=== PATIENT | male | born 1935 | race Caucasian/White ===

== ENCOUNTER 2018-10-23 14:08 | Inpatient (IN) ==
[2018-10-23 15:30] LABS: BASO# 0.03 X1000 (0.0-0.2); BASO% 0.6 % (0.0-0.8); EOS# 0.11 X1000 (0.0-0.7); EOS% 2.2 % (0.0-10.0); HEMATOCRIT 27.9 % (42.0-52.0); HEMOGLOBIN 8.6 g/dL (14.0-18.0); LYMPH# 1.11 X1000 (1.2-3.4); MCH 28.1 PG (27-31); MCHC 30.8 g/dL (33-37); MCV 91.2 FL (81-99); MONO# 0.69 X1000 (0.11-0.59); MONO% 13.7 % (1.7-9.3); MPV 9.4 FL (7.4-10.4); NEUT% 61.5 % (42.2-75.2); PLT 188 X1000 (130-400); RBC 3.06 XMIL (4.7-6.1); RDW 14.8 % (11.5-14.5); WBC 5.04 X1000 (4.8-10.8)
[2018-10-23 15:49] LABS: INR 2.99; PROTIME 33.2 Seconds (11.0-16.0); PTT 48.6 Seconds (22.3-41.8)
[2018-10-23 16:16] LABS: AGAP 12; ALB/GLOB RATIO 0.8; ALBUMIN 3.6 g/dL (3.5-5.0); ALKALINE PHOSPHATASE 73 U/L (32-122); BUN 19 mg/dL (8-22); CALCIUM 8.3 mg/dL (8.8-10.2); CHLORIDE 97 mmol/L (98-107); COSMO 279; CREATININE 0.8 mg/dL (0.7-1.2); ESTIMATED GFR > 60; GLUCOSE 191 mg/dL (70-104); GOT 19 U/L (10-34); GPT 8 U/L (10-44); SODIUM 136 mmol/L (136-145); TCO2 27 mmol/L (25-35); TOTAL BILIRUBIN 0.36 mg/dL (0.20-1.00); TOTAL PROTEIN 8.1 g/dL (6.3-8.3)
[2018-10-23] MEDS: NS 1,000 ML IV SCH (18:41)
--- NOTE | 2018-10-23 19:15 | HISTORY AND PHYSICAL ---
CHIEF COMPLAINT: Bright red rectal bleeding. PRESENT ILLNESS: This is the first recent [facility] admission for this 83-year-old white man, patient of Dr. Maya, who noticed some bright red rectal bleeding today and presented to the emergency room. Hemoccult was positive. Hematocrit was 28. He is admitted for further evaluation and treatment. He is currently taking Coumadin because of aortic and peripheral artery disease. He has had no vomiting, and no hematemesis. There has been no bruising, nose bleed, or hematuria. There is history of GI bleeding in the past. He had colonoscopy 1 year ago and had some colon bleeding which was cauterized by Dr. Justice, tooth cutter pinion. PAST MEDICAL AND SURGICAL HISTORY: Surgeries include tonsillectomy as a child, bilateral cataract surgeries, attempted aortic aneurysm surgery by Dr. Michael. Bleeding caused him to abort surgery, and he was sent to [place] for evaluation to Dr. Hollins, vascular surgeon. Repeat abdominal ultrasound revealed aneurysm to be 4.5 cm[address] Mr. Bradley was told if the aneurysm increased to 5.[address] Hollins would do surgery. He is to return to [place] soon. PRESENT MEDICATIONS: Atorvastatin 80 mg at bedtime, Proscar 5 mg at bedtime, Humulin N insulin 42 units every a.m. and 22 units every p.m., carvedilol 3.125 mg b.i.d., Lopid 600 mg b.i.d., Flomax 0.4 mg at bedtime, Lasix 20 mg every a.m., potassium chloride 10 mEq 1 daily, and warfarin 2 mg every night at bedtime except 4 mg on . ALLERGIES: None known. REVIEW OF SYSTEMS: No significant abdominal pain. He has some constipation and admits to several large firm BMs recently. There has been no recent weight change. SOCIAL HISTORY: . No history of smoking or alcohol usage. PHYSICAL EXAMINATION: VITAL SIGNS: Temperature 97.7 degrees, heart rate 70, respirations 17, blood pressure 137/65, O2 saturation on room air 100%. Weight 250, height 5 feet 9 inches. GENERAL: Patient is a well-developed, well-nourished, pleasant white man in no distress. HEENT: Pupils equal, round, and reactive to light. Tympanic membranes without inflammation. Pharynx benign. NECK: Supple with no mass or lymphadenopathy. HEART: Regular in rate and rhythm with no murmur, rub or gallop. LUNGS: Clear with no rales or rhonchi. ABDOMEN: Soft with no mass, tenderness, or organomegaly. There is no abdominal bruit. EXTREMITIES: No cyanosis, clubbing, or edema. RECTAL AND GENITALIA: Deferred. DIAGNOSTIC DATA: Stool was checked for blood in the emergency room and was heme positive. IMPRESSION: 1. Lower gastrointestinal bleed. 2. Anemia. 3. Peripheral artery disease. 4. History of abdominal aortic aneurysm. PLAN: Admit for further evaluation and treatment. Dr. Reed is consulted. Coumadin is held for now. INR in the emergency room was 2.9. cc: MD Gurmeet Zazueta MD
--- NOTE | 2018-10-23 19:32 | PROVIDER DOCUMENTATION ---
This chart was entered by Brooke Mari Scribe, acting as scribe for Shefali Pereira MD. HPI-Abdominal Pain/GI Problem - General Chief Complaint: GI Bleed Stated Complaint: SOB,WEAKNESS,DIZZY,BLOOD IN STOOL Time Seen by Provider: 10/23/18 14:31 Source: patient Allergies/Adverse Reactions: Patient Allergies Allergy/AdvReac Type Severity Reaction Status Date / Time No Known Allergies Allergy Verified 10/23/18 15:06 Home Medications: Home Medication List Medication Instructions Recorded Confirmed Last Taken Type ATORVAstatin [Lipitor] 80 mg PO QHS 04/28/12 10/23/18 10/23/18 History Finasteride [Proscar] 5 mg PO QHS 04/28/12 10/23/18 10/22/18 History Furosemide [Lasix] 20 mg PO DAILY 04/28/12 10/23/18 10/23/18 History Gemfibrozil [Lopid] 600 mg PO BID 04/28/12 10/23/18 10/23/18 History Potassium Chloride 10 meq PO DAILY 04/28/12 10/23/18 10/23/18 History Tamsulosin [Flomax] 0.4 mg PO HS 04/28/12 10/23/18 10/22/18 History Hum Insulin NPH/Reg Insulin Hm 22 unit SQ QHS 05/25/17 10/23/18 10/22/18 History [Novolin 70-30 100 Unit/ml Vial] Hum Insulin NPH/Reg Insulin Hm 42 unit SQ QAM 05/25/17 10/23/18 10/23/18 History [Novolin 70-30 100 Unit/ml Vial] Carvedilol [Coreg] 3.125 mg PO BID tablet 12/10/17 10/23/18 10/23/18 Rx Warfarin [Coumadin] 4 mg PO QHS tablet 12/10/17 10/23/18 10/22/18 Rx Acetaminophen E.r. [Tylenol 2 cap PO BID 02/05/18 10/23/18 10/23/18 History Arthritis] Warfarin [Coumadin] 2 mg PO QHS 02/05/18 10/23/18 10/23/18 History - History of Present Illness-ABD Nature of Presenting Problems: 83 yom presents to the ed with c/o rectal bleeding intermittent for 2 weeks with bright red blood smeared on feces. pt had hx of GI bleed and was followed by dr corley last year. pt has had constipation recently with the rectal bleeding. pt is on a blood thinner daily. report Hx of GI tumor treated in 2002. Modifying Factors: worse with: defecating Associated Symptoms: reports: constipation, other (rectal bleeding). denies: back/neck pain, cough, diaphoresis, diarrhea, dizziness, fever/chills, headaches, nausea, shortness of breath, vomiting, weakness Last BM: this morning Dark Stools Present?: reports: bright red blood Rectal Bleeding: reports: bright red blood on paper, blood streaks on stool # of Diarrhea Episodes: 0 # of Vomiting Episodes: 0 Emesis Description: reports: none Bruising or Bleeding Gums?: No Similar Symptoms Previously?: Yes (was seen by dr corley last year for same) Recently seen or treated by another doctor?: No Review of Systems - Adult - REVIEW OF SYSTEMS - ADULT Constitutional: denies: see HPI, fever, fatique Eyes: reports: no symptoms reported Ears, Nose, Mouth & Throat: reports: no symptoms reported Cardiovascular: denies: chest pain, palpitations Respiratory: denies: shortness of breath, wheezing Gastrointestinal: reports: constipation, rectal bleeding. denies: abdominal pain, diarrhea, nausea, vomiting Genitourinary: reports: no symptoms reported Musculoskeletal: denies: back pain, neck pain Integumentary: reports: no symptoms reported Neurological: reports: no symptoms reported Past History - Adult - PAST MEDICAL HISTORY-ADULT Review of Records: reports: Old Records Reviewed, Nursing Assessment Review, Medications Reviewed, Social history reviewed & non-contributory. Major Childhood Illnesses: reports: denies history Cardiovascular: reports: cardiac disease, blood clots, CAD, HTN, hyperlipidemia, murmur, [place], pacemaker Respiratory: reports: sleep apnea Gastrointestinal: reports: denies history Genitourinary: reports: kidney stones (hx), prostate cancer Musculoskeletal: reports: denies history Hand Dominance: Right Handed Neurological: reports: denies history Psychiatric: reports: denies history Endocrine/Immune: reports: Diabetes Diabetes Type: Type 2 Other Conditions: reports: other cancer (prostate), cataract/glaucoma - PRIOR SURGERIES/PROCEDURES Surgical/Procedure History: reports: cardiac stent, pacemaker, other (bilateral cataract sx/left shoulder drained/GI bleed in past) - IMMUNIZATION STATUS Childhood Immunizations: See Nurse Assessment Flu Vaccine: See Nurse Assessment - FAMILY HISTORY Family History: reviewed, not pertinent - SOCIAL HISTORY Smoking: quit greater than 1 year Substance Use: none/never Alcohol Use Frequency: never Living Situation: family Physical Exam-General - PHYSICAL EXAM-ADULT Initial Vital Signs Reviewed: Yes - CONSTITUTIONAL General Appearance: appears well, alert, mild distress, obese - EYES Eyes: PERRL/EOMI, pink conjunctivae - HEAD, EARS, NOSE, MOUTH & THROAT HENMT: moist mucous membranes, normal ENT inspection - NECK Neck: non-tender, supple, normal inspection - RESPIRATORY Respiratory: chest non-tender, lungs clear, normal breath sounds, no pleuratic chest pain, no respiratory distress, no accessory muscle use - CARDIOVASCULAR Cardiovascular: normal peripheral pulses, systolic murmur, irregularly irregular - GASTROINTESTINAL (ABDOMEN) Abdominal Exam: normal bowel sounds, non tender, soft, other (mid abdomen scar well healed) - GENITOURINARY Male Genitalia: deferred Rectal Exam: normal rectal tone, blood streaked stool Hemoccult Exam: heme positive stool - LYMPHATIC Lymphatic: no adenopathy - MUSCULOSKELETAL Back Exam: normal inspection, no CVA tenderness, no vertebral tenderness Extremity: normal range of motion, non-tender, no pedal edema, no calf tenderness, normal capillary refill - SKIN Integumentary: normal color, normal turgor, warm/dry - NEUROLOGIC Neurologic: grossly normal, no motor/sensory deficits - PSYCHIATRIC Psych/Mental Status: normal mood/affect, normal thought content, normal thought process, oriented x 3 Progress - PLAN OF CARE/RESULTS Progress/Plan/Lab Results: Vital Signs - 8 hr 10/23/18 14:21 Temperature 98 F Pulse Rate 88 Respiratory Rate 20 Blood Pressure 129/78 O2 Sat by Pulse Oximetry 99 Orders Category Date Time Status CBC WITH ELECTRONIC DIFF [HEME] Stat Lab 10/23/18 14:53 Ordered COMPREHENSIVE METABOLIC PANEL [CHEM] Stat Lab 10/23/18 14:53 Ordered OCCULT BLOOD DIAGNOSTIC [STOOL] Stat Lab 10/23/18 14:53 Ordered PROTIME WITH INR [COAG] Stat Lab 10/23/18 14:53 Ordered PTT [COAG] Stat Lab 10/23/18 14:53 Ordered BRBPR with multiple risk factor (warfarin, Hx of GI tumor and bleed) and low Hg need further management inpatient. Result Diagrams: 10/23/18 14:51 10/23/18 14:51 - EKG 1 Time of EKG reading by physician:: 15:06 EKG Read and Signed by:: Shefali Pereira (possible anterolateral infarct, ag e undetermined) EKG Interpretation (*Must complete 3 of following elements*): Abnormal Rate: 74 Rhythm: wide qrs w/ occ pvc [place]: normal QRS: RBB, PVC's MD Interval: normal Comments: inferior infarct, age undetermiend - CONSULTS/PCP/HOSPITALIST Notification #1 *Consult/PCP/Hospitalist*: Dr. Tuttle Time Discussed: 17:09 Consult Disposition: Admit (Hx, PE and pt care discussed, admitting for Dr. Poe.) Departure - Departure Date of Disposition Decision: 10/23/18 Time of Disposition Decision: 17:11 DIAGNOSIS: Bright red blood per rectum Disposition: ADMITTED INPATIENT 09 Certified Medical Emergency: Emergent Condition: Stable - Critical Care Note This patient required my direct & personal management of CC.: No Attestation - Physician/ AZIZA Attestation Patient care was provided by Advanced Practice Provider:: No The physician spent face to face time with patient:: Yes Advanced Practice Provider documentation review:: Supervising physician onsite and consulted in the evaluation and care of this patient. The physician did have a face to face encounter with the patient. This chart was documented by the indicated scribe, (Brooke Mari, Camilo) a nd accurately reflects the services I performed and decisions made by me, Shefali Murguia MD, as attested by the provider's signature.
[2018-10-23 20:50] LABS: HEMATOCRIT 25.5 % (42.0-52.0); HEMOGLOBIN 7.6 g/dL (14.0-18.0)
[2018-10-23] MEDS: COREG PO SCH (21:29)
[2018-10-23] MEDS: FLOMAX PO SCH (21:29)
[2018-10-23] MEDS: LOPID PO SCH (21:29)
[2018-10-23] MEDS: LIPITOR PO SCH (21:29)
[2018-10-23] MEDS: TYLENOL ARTHRITIS PO SCH (21:32)
[2018-10-23] MEDS: PROSCAR PO SCH (21:47)
[2018-10-23] MEDS ORDERED: INSULIN PEN NEEDLES ONE (22:00)
[2018-10-23] MEDS: HUMULIN 70/30 SUBQ SCH (22:20)
[2018-10-24] MEDS: NS 1,000 ML IV SCH ×4 (06:24→21:13)
[2018-10-24 08:02] LABS: BASO# 0.02 X1000 (0.0-0.2); BASO% 0.5 % (0.0-0.8); EOS# 0.12 X1000 (0.0-0.7); EOS% 2.9 % (0.0-10.0); HEMATOCRIT 24.2 % (42.0-52.0); HEMOGLOBIN 7.2 g/dL (14.0-18.0); LYMPH# 1.02 X1000 (1.2-3.4); LYMPH% 24.5 % (20.5-51.1); MCH 27.4 PG (27-31); MCHC 29.8 g/dL (33-37); MONO# 0.76 X1000 (0.11-0.59); MONO% 18.3 % (1.7-9.3); MPV 9.4 FL (7.4-10.4); NEUT# 2.24 X1000 (1.4-6.5); NEUT% 53.8 % (42.2-75.2); PLT 159 X1000 (130-400); RBC 2.63 XMIL (4.7-6.1); RDW 14.7 % (11.5-14.5); WBC 4.16 X1000 (4.8-10.8)
--- NOTE | 2018-10-24 09:02 | PROGRESS NOTE ---
DATE: 10/24/2018 VITAL SIGNS: Stable with temperature 97.9 degrees, heart rate 73, respirations 20, blood pressure 115/62, O2 saturation 100% on room air. LABORATORY: Hemoglobin 7.2, hematocrit 24.2, white blood count 4200 with 54% neutrophils. SUBJECTIVE: The patient had no additional bleeding overnight. He has no abdominal pain. Discussion was made with Dr. Reed. He will be transfused 2 units of packed red blood cells. Lab will be repeated tomorrow morning. cc: MD Gurmeet Zazueta MD
[2018-10-24] MEDS: LOPID PO SCH ×2 (10:04→21:12)
[2018-10-24] MEDS: COREG PO SCH ×2 (10:04→21:12)
[2018-10-24] MEDS: TYLENOL ARTHRITIS PO SCH ×2 (10:04→21:12)
[2018-10-24] MEDS: HUMULIN 70/30 SUBQ SCH ×2 (10:05→21:13)
--- NOTE | 2018-10-24 14:26 | GASTROENTEROLOGY CONSULTATION ---
DATE: 10/24/2018 CONSULT REQUESTED BY: Dr. Carl Tuttle. REASON FOR CONSULT: GI bleed. HISTORY: This is a 83-year-old white male patient of Dr. Justice. Dr. Justice had seen him in the hospital exactly about a year ago for the similar problem. He was brought in the emergency room after he has had some bright red blood per rectum along with shortness of breath and dizziness. The patient has history of chronic atrial fibrillation and peripheral vascular disease and has been on Coumadin since . He is followed up by [facility] for his [facility]R. He tells me that for the past 2 weeks he has been noticing bright red blood per rectum off and on and he tells me it is a small quantity but has had almost with every bowel movements. He has been constipated and has to strain a lot and has been passing large hard stool and has felt as if they gets tear down in the rectum. However he does not have any swelling in the area. Although he has been bleeding for a couple weeks he sought medical attention after he started having shortness of breath and dizzy spells. He denies any melena. Has had no indigestion, heartburn, reflux symptoms. Denies any dysphagia, odynophagia. His appetite has been good has been eating well. He has not lost any weight. He has not had any headache. Denies any chest pain, has not any cough sputum, hemoptysis. Denies any dysuria, polyuria or hematuria. He had a colonoscopy Dr. Justice last year and had some AVMs cauterized. He did not have any polyps, tumors or cancers. PAST MEDICAL HISTORY: Significant for diabetes hypertension, chronic atrial fibrillation, peripheral vascular disease, history of lower GI bleed secondary to AVM cauterized, history of aortic aneurysm. MEDICATION: Prior to hospitalization he has been on Coumadin, Flomax, insulin, Lopid, Lasix, Proscar, Coreg, Lipitor, Tylenol Arthritis. ALLERGIES: No drug allergies. SOCIAL HISTORY: He is , lives with his . He is almost bedridden, has not been able to walk much, he gets off his chair to the bedside commode and back. Does not smoke, does not drink, does not use illicit drugs. FAMILY HISTORY: Noncontributory. REVIEW OF SYSTEMS: As per HPI as above. EXAMINATION: Very pleasant white male overweight, he is lying in bed. He is conscious, alert, appears to be in no distress.Vitals: Temperature is 97.9 degrees, pulse 73 per minute, breathing 20, blood pressure 115/62. HEENT: Head is atraumatic, normocephalic. Conjunctivae is normal. Sclerae anicteric. Nares are patent, no discharge. Mouth is moist. Throat is normal. Neck: Supple. No lymphadenopathy, thyromegaly. Chest: Has got a pacemaker on the left upper chest otherwise chest is clear to auscultate. Heart: S2 audible. Has got systolic murmur. Abdomen: Is obese, soft, it is nontender. I could not appreciate masses, megaly, no ascites noted. Bowel sounds are audible. No pedal edema, cyanosis, clubbing was noted. BUILD ENGINEER: Grossly intact. No sensory or motor deficit. LABORATORIES: Reviewed which showed WBC is 4.16, hemoglobin was 7.2, hematocrit 24.2, MCV 92, platelets were 159,000. PT 33.2, INR 2.99, PTT 48.6, sodium 136, potassium 4.0, chloride 97, BUN is 19, creatinine 0.8, glucose was 191. Transaminases, bilirubin and alkaline phosphate normal. IMPRESSION: This 83-year-old gentleman who has been on Coumadin for chronic atrial fibrillation, peripheral vascular disease and has also history of aortic aneurysm. He has presented with bright red blood per rectum off and on for the past 2 weeks. His INR was 2.99 on admission yesterday, his hemoglobin has come down to 7.2 today. Patient appears to have had significant loss of blood in the past 2 weeks most likely from the coagulopathy secondary to Coumadin. At this point we need to hold his Coumadin to get his INR back between 1.5 and 2. In the meantime continue GI soft diet and check hemoglobin and hematocrit, transfuse to get his hemoglobin, hematocrit a little better than what is now to get him comfortable because he presented with symptomatic anemia. From gastroenterology perspective he has had a colonoscopy a year ago. The arterial venous malformations were cauterized. At this point I do not think we need to do anything especially because his INR is significantly high almost prohibitively high. Will continue to follow while he is in the hospital and depending on progress further plans will be made. I have discussed the case with Dr. Tuttle also, explained the findings and plan to the patient. He understands. All his pertinent questions answered. Rest of the medical treatment as per medical team. cc: MD Gurmeet Sheffield MD MTDD
[2018-10-24] MEDS: LIPITOR PO SCH (21:12)
[2018-10-24] MEDS: PROSCAR PO SCH (21:12)
[2018-10-24] MEDS: FLOMAX PO SCH (21:13)
[2018-10-24 22:22] LABS: URINE SOURCE CLEAN CATCH
[2018-10-24 22:26] LABS: BILIRUBIN URINE NEGATIVE (NEGATIVE); BLOOD URINE SMALL (NEGATIVE); COLOR YELLOW; GLUCOSE URINE NEGATIVE (NEGATIVE); KETONE URINE NEGATIVE (NEGATIVE); LEUKOCYTES URINE LARGE (NEGATIVE); NITRITE URINE POSITIVE (NEGATIVE); PH URINE 6.5; PROTEIN URINE 30 mg/dL (NEGATIVE); SP GRAVITY URINE 1.021; TURBIDITY URINE HAZY (CLEAR); UR EPITHELIAL CELLS <10 /HPF (<10); URINE BACTERIA 4+ /HPF; URINE RBC <10 /HPF (<10); URINE WBC TNTC /HPF (<10); UROBILINOGEN URINE NORMAL (NORMAL)
[2018-10-25 07:45] LABS: BASO# 0.02 X1000 (0.0-0.2); BASO% 0.4 % (0.0-0.8); EOS# 0.17 X1000 (0.0-0.7); EOS% 3.3 % (0.0-10.0); HEMATOCRIT 28.4 % (42.0-52.0); HEMOGLOBIN 8.8 g/dL (14.0-18.0); IMM GRAN# 0.02 X1000 (0.0-0.04); IMM GRAN% 0.4 % (0.0-0.5); LYMPH# 0.95 X1000 (1.2-3.4); LYMPH% 18.7 % (20.5-51.1); MCH 27.9 PG (27-31); MCV 90.2 FL (81-99); MONO# 0.87 X1000 (0.11-0.59); MONO% 17.1 % (1.7-9.3); MPV 9.4 FL (7.4-10.4); NEUT# 3.06 X1000 (1.4-6.5); NEUT% 60.1 % (42.2-75.2); PLT 157 X1000 (130-400); RBC 3.15 XMIL (4.7-6.1); RDW 15.7 % (11.5-14.5); WBC 5.09 X1000 (4.8-10.8)
[2018-10-25] MEDS: LOPID PO SCH ×2 (08:51→20:51)
[2018-10-25] MEDS: TYLENOL ARTHRITIS PO SCH ×2 (08:52→20:51)
[2018-10-25] MEDS: HUMULIN 70/30 SUBQ SCH ×3 (08:53→20:51)
[2018-10-25] MEDS: COREG PO SCH ×2 (08:54→20:51)
--- NOTE | 2018-10-25 09:30 | PROGRESS NOTE ---
DATE: 10/25/2018 VITAL SIGNS: Stable with temperature 98.3 degrees, heart rate 70, respirations 16, blood pressure 122/65, O2 saturation on room air 97%. SUBJECTIVE: The patient had no significant rectal bleeding, but did have some dark blood and 1 stool yesterday. After transfusion, hematocrit this morning is 28.4. Hemoglobin 8.8, and white blood count 5100. Blood sugars have been around 200. Chest is clear. He has noticed swelling in his hands and difficulty removing his rings. PLAN: Restart p.o. Lasix and potassium. Also increase a.m. insulin back to 42 units. Hematocrit will be rechecked tomorrow. Decision about lower GI endoscopy will be made tomorrow by Gastroenterology . cc: MD Gurmeet Zazueta MD
[2018-10-25] MEDS: NS 1,000 ML IV SCH ×2 (11:34→23:57)
[2018-10-25] MEDS: LASIX PO SCH (11:34)
[2018-10-25] MEDS: KLOR-CON PO SCH (11:34)
[2018-10-25 12:30] LABS: INR 2.13; PROTIME 25.4 Seconds (11.0-16.0)
--- NOTE | 2018-10-25 12:45 | GASTROENTEROLOGY PROGRESS NOTE ---
DATE: 10/25/2018 SUBJECTIVE: Patient is awake, alert, in no acute distress. He reports having a maroon color stool yesterday, so far no bowel movement today. Hemoglobin and hematocrit today improved some after 2 units of packed red blood cells. Today hemoglobin 8.8 and hematocrit 28.4. OBJECTIVE: Vital Signs: Temperature 98.6 degrees, pulse 70, respirations 16, blood pressure 115/57. General: Patient is awake and alert, no acute distress. Abdomen: Soft, nontender. LABORATORY: Hematology: WBC 5.09, hemoglobin 8.8, hematocrit 28.4, this is after 2 units of packed red blood cells on 10/24/2018. ASSESSMENT AND PLAN: 1. Recent rectal bleeding. 2. Anticoagulation with Coumadin. Coumadin has been held. The patient had a colonoscopy a year ago by Dr. Justice that showed some AVMs in the colon that were cauterized. We will continue to follow during his hospital course. We will allow full liquids. Further plans to be made as needed. I have discussed this case with Dr. Reed. Dictated by CARIN Tapia for Ash Reed MD cc: CARIN Bowman MD Stephen W. Harbin, MD
[2018-10-25] MEDS: HUMALOG SUBQ SCH ×2 (17:53→20:51)
[2018-10-25] MEDS: PROSCAR PO SCH (20:51)
[2018-10-25] MEDS: FLOMAX PO SCH (20:51)
[2018-10-25] MEDS: LIPITOR PO SCH (20:51)
[2018-10-26] MEDS: LASIX PO SCH (05:48)
[2018-10-26] MEDS: KLOR-CON PO SCH (05:48)
[2018-10-26] MEDS: HUMALOG SUBQ SCH ×4 (06:26→20:05)
[2018-10-26] MEDS: TYLENOL ARTHRITIS PO SCH ×2 (08:31→20:06)
[2018-10-26] MEDS: LOPID PO SCH ×2 (08:31→20:05)
[2018-10-26] MEDS: COREG PO SCH ×2 (08:32→20:05)
[2018-10-26] MEDS: HUMULIN 70/30 SUBQ SCH ×2 (08:32→20:05)
[2018-10-26] MEDS ORDERED: HUMULIN 70/30 SUBQ SCH (09:00)
--- NOTE | 2018-10-26 09:07 | PROGRESS NOTE ---
DATE: 10/26/2018 SUBJECTIVE: Patient is stable. He is desiring to eat more solid diet. He had received 2 units PRBC's transfused. OBJECTIVE: Afebrile. Pulse 70, respirations 18, blood pressure 121/57. O2 saturation room air 100%.CV: RRR with 2/6 murmur. Lungs: Clear. Abdomen: Soft. Nontender. Nondistended. Extremities: No calf tenderness, cords or edema. Prominent arthritic changes diffusely. Neurologic: Cranial nerves 2-12 are intact. Nonfocal. Blood sugars in the high 100s to mid 200s. Hematocrit 28.1, down from 28.4 yesterday, but stable after 2 units PRBC's transfused. INR yesterday down to 2.13 off his Coumadin. ASSESSMENT: 1. Heme-positive stools with GI bleed. 2. Acute GI blood loss anemia. 3. History of colonic AVM previously cauterized by Dr. Justice 1 year ago. 4. 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 5. Paroxysmal atrial fibrillation on chronic Coumadin therapy per Cardiology and followed by the [facility] with patient now being off Coumadin due to the GI bleeding. 6. 4.5 cm abdominal aortic aneurysm. 7. Peripheral arterial disease. 8. Osteoarthritis. 9. Hyperlipidemia. 10. 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 11. Coronary artery disease. 12. Morbid obesity. 13. Fatty liver. 14. Diverticulosis. 15. Asymptomatic cholelithiasis. 16. Cardiomyopathy. 17. History of prostate cancer. 18. Hypertension. 19. Permanent pacemaker. 20. CORY on CPAP. PLAN: We will leave current dietary situation to Gastroenterology. He is off the Coumadin. He is on his scheduled insulin with blood sugars acceptable. He is on low-dose IV fluids. He is on low-dose Lasix and potassium, and his Lipitor, Lopid, and his Coreg. We will continue to follow him and transfuse if required. Follow his hemoglobin and hematocrit closely. cc: Gurmeet Poe MD
--- NOTE | 2018-10-26 09:55 | EKG Report ---
Test Performed on : 10/23/2018 3:08:41 PM Test Reason : sob Blood Pressure : / mmHG Vent. Rate : 075 BPM Atrial Rate : 063 BPM P-R Int : 000 ms QRS Dur : 186 ms QT Int : 472 ms P-R-T Axes : 000 239 055 degrees QTc Int : 527 ms Wide QRS rhythm. with occasional premature ventricular complexes. Right bundle branch block Possible Lateral infarct , age undetermined Inferior infarct , age undetermined Abnormal ECG When compared with ECG of 05-FEB-2018 11:31, Wide QRS rhythm. has replaced Electronic ventricular pacemaker Unconfirmed Result
[2018-10-26] MEDS: NS 1,000 ML IV SCH (12:58)
--- NOTE | 2018-10-26 16:30 | GASTROENTEROLOGY PROGRESS NOTE ---
DATE: 10/26/2018 SUBJECTIVE: The patient has tolerated a full liquid diet. He denies any visible blood. He states he had a bowel movement today and nurse states that was nonbloody. Hematocrit today 28.1. Patient has received 2 units of packed red blood cells since admission. OBJECTIVE: Vital Signs: Temperature 98.6 degrees, pulse 70, respirations 18, blood pressure 96/54. General: Patient is awake, alert, no acute distress. LABORATORY: Hematology: Hematocrit 28.1. ASSESSMENT AND PLAN: 1. Recent rectal bleeding. Seems to have resolved. 2. Anemia. Patient has received 2 units of packed red blood cells. Will continue to follow hemoglobin and hematocrit. 3. History of atrial fibrillation, on Coumadin therapy. Coumadin is currently on hold due to recent bleeding. Continue PPI. Continue to monitor hemoglobin and hematocrit and transfuse further packed red blood cells if needed. Coumadin is currently on hold. He has not had active bleeding in the last several days. Since he has no active bleeding we will most likely not proceed with endoscopy. I will discuss this case with Dr. Reed and we may advance the patient's diet depending on plan. Dictated by CARIN Tapia for Ash Reed MD cc: CARIN Bowman MD Stephen W. Harbin, MD
[2018-10-26] MEDS: PROSCAR PO SCH (20:05)
[2018-10-26] MEDS: FLOMAX PO SCH (20:05)
[2018-10-26] MEDS: LIPITOR PO SCH (20:06)
[2018-10-27] MEDS: NS 1,000 ML IV SCH ×2 (01:50→16:19)
[2018-10-27] MEDS: LASIX PO SCH (06:13)
[2018-10-27] MEDS: KLOR-CON PO SCH (06:13)
[2018-10-27] MEDS: HUMALOG SUBQ SCH ×4 (06:13→20:21)
[2018-10-27 08:16] LABS: BASO# 0.01 X1000 (0.0-0.2); BASO% 0.2 % (0.0-0.8); EOS# 0.14 X1000 (0.0-0.7); EOS% 2.2 % (0.0-10.0); HEMATOCRIT 27.4 % (42.0-52.0); HEMOGLOBIN 8.4 g/dL (14.0-18.0); IMM GRAN# 0.02 X1000 (0.0-0.04); IMM GRAN% 0.3 % (0.0-0.5); LYMPH# 1.04 X1000 (1.2-3.4); LYMPH% 16.4 % (20.5-51.1); MCH 27.5 PG (27-31); MCHC 30.7 g/dL (33-37); MCV 89.5 FL (81-99); MONO# 1.12 X1000 (0.11-0.59); MONO% 17.6 % (1.7-9.3); MPV 9.9 FL (7.4-10.4); NEUT# 4.02 X1000 (1.4-6.5); NEUT% 63.3 % (42.2-75.2); PLT 151 X1000 (130-400); RBC 3.06 XMIL (4.7-6.1); WBC 6.35 X1000 (4.8-10.8)
[2018-10-27 08:17] LABS: AGAP 11; BUN 10 mg/dL (8-22); CALCIUM 8.1 mg/dL (8.8-10.2); CHLORIDE 103 mmol/L (98-107); COSMO 273; CREATININE 0.6 mg/dL (0.7-1.2); ESTIMATED GFR > 60; GLUCOSE 129 mg/dL (70-104); SODIUM 136 mmol/L (136-145); TCO2 22 mmol/L (25-35)
[2018-10-27 08:18] LABS: INR 1.67
[2018-10-27] MEDS ORDERED: PRILOSEC PO ONE (08:36)
--- NOTE | 2018-10-27 09:01 | PROGRESS NOTE ---
DATE: 10/27/2018 SUBJECTIVE: Patient is stable. No bowel movement yet this morning. He remains on full liquids as per gastroenterology. OBJECTIVE: Afebrile, pulse 70, respirations 13, blood pressure 96/56, O2 saturation on room air 97%. CV: RRR, with murmur. Lungs: Clear. Abdomen: Soft, nontender, nondistended. Extremities: No major edema. Neurologic: Cranial nerves are intact. No focal deficits. Sodium 136, potassium 4.0, chloride 103, CO2 22, BUN 10, creatinine 0.6, blood sugar in the 98 to 247 range, calcium 8.1. White count 6.35, hemoglobin 8.4, platelets 151,000. ASSESSMENT: 1. Gastrointestinal bleed with heme-positive stools. 2. Acute gastrointestinal blood loss anemia. 3. History of colonic arteriovenous malformations, previously cauterized [address] Justice. 4. 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 5. Paroxysmal atrial fibrillation, on chronic Coumadin per cardiology, currently being held with his INR down to 1.67, now off the Coumadin. 6. A 4.5 cm abdominal aortic aneurysm, followed in [place] by a surgeon. 7. Peripheral arterial disease. 8. Osteoarthritis. 9. Hyperlipidemia. 10. History of pancreatic cystic lesion, thought to be fatty infiltration of the pancreas. 11. Coronary artery disease. 12. Morbid obesity. 13. Fatty liver. 14. Diverticulosis. 15. Asymptomatic cholelithiasis. 16. Cardiomyopathy. 17. History of prostate cancer. 18. Hypertension. 19. Permanent pacemaker. 20. Obstructive sleep apnea, on CPAP at night. PLAN: Continue to hold his Coumadin. Continue IVF and full liquids per gastroenterology. We will monitor his CBC and BMP closely. Monitor his blood pressure closely. Continue his home low dose of Lasix Coreg, Lipitor, Lopid, potassium. Monitor his blood sugars on his current regimen of insulin. If hemoglobin stabilizes, may be able to discharge in 24 to 48 hours. At this time, he is trending downward slightly. We will continue to observe with gastroenterology. Continue PPI ordered for peptic ulcer disease prevention. cc: Gurmeet Poe MD
[2018-10-27] MEDS: TYLENOL ARTHRITIS PO SCH ×2 (09:20→20:16)
[2018-10-27] MEDS: LOPID PO SCH ×2 (09:20→20:16)
[2018-10-27] MEDS: COREG PO SCH ×2 (09:20→20:16)
[2018-10-27] MEDS: HUMULIN 70/30 SUBQ SCH ×2 (09:22→20:22)
[2018-10-27] MEDS ORDERED: GOLYTELY PO ONE (14:00)
--- NOTE | 2018-10-27 14:37 | GASTROENTEROLOGY PROGRESS NOTE ---
DATE: 10/27/2018 SUBJECTIVE: Patient is awake and alert. No acute distress. There has been no evidence of active bleeding. His hemoglobin and hematocrit today are slightly lower. INR 1.67 today. OBJECTIVE: Vital Signs: Temperature 98.5 degrees, pulse 70, respirations 13, blood pressure 113/57. General: Patient is awake, alert, no acute distress. Abdomen: Soft, nontender. LABORATORY: Hematology: WBC 6.35, hemoglobin 8.4, hematocrit 27.4, MCV 89.5, platelet 151,000. Coagulation: Pro-time 21.0, INR 1.67. Chemistry: Sodium 136, potassium 4.0, chloride 103, CO2 of 22, BUN 10, creatinine 0.6, glucose 129. ASSESSMENT AND PLAN: 1. Hemoccult-positive stools with no evidence of active gastrointestinal bleeding. 2. Anemia, slightly worsened today. 3. History of colonic arteriovenous malformations with colonoscopy and esophagogastroduodenoscopy by Dr. Justice approximately a year ago. 4. Anticoagulation. He has been off of his Coumadin since admission. His INR is 1.67 today. We will continue to monitor for active bleeding. Monitor hemoglobin and hematocrit and transfuse packed red blood cells as needed. Due to patient's continued anemia, before he is started back on his Coumadin would recommend endoscopic evaluation. We will proceed with EGD and colonoscopy on Friday. I have discussed the procedure with the patient and he wished to proceed if necessary. Further plans will be made according to findings. I have discussed this case with Dr. Reed. Dictated by CARIN Tapia for Ash Reed MD cc: CARIN Bowman MD Stephen W. Harbin, MD
[2018-10-27] MEDS: FLOMAX PO SCH (20:16)
[2018-10-27] MEDS: PROSCAR PO SCH (20:17)
[2018-10-27] MEDS: LIPITOR PO SCH (20:17)
[2018-10-28] MEDS: NS 1,000 ML IV SCH ×3 (05:11→23:30)
[2018-10-28] MEDS: PRILOSEC PO SCH (06:07)
[2018-10-28] MEDS: HUMALOG SUBQ SCH ×4 (06:07→21:51)
[2018-10-28 07:16] LABS: HEMATOCRIT 27.5 % (42.0-52.0); HEMOGLOBIN 8.4 g/dL (14.0-18.0); MCH 28.3 PG (27-31); MCHC 30.5 g/dL (33-37); MCV 92.6 FL (81-99); MPV 9.4 FL (7.4-10.4); RBC 2.97 XMIL (4.7-6.1); RDW 15.2 % (11.5-14.5); WBC 3.48 X1000 (4.8-10.8)
[2018-10-28 07:31] LABS: AGAP 8; BUN 7 mg/dL (8-22); CHLORIDE 102 mmol/L (98-107); COSMO 270; CREATININE 0.6 mg/dL (0.7-1.2); ESTIMATED GFR > 60; GLUCOSE 96 mg/dL (70-104); POTASSIUM 3.7 mmol/L (3.5-5.1); SODIUM 136 mmol/L (136-145); TCO2 26 mmol/L (25-35)
[2018-10-28] MEDS ORDERED: DIPRIVAN 1% ONE (13:08)
[2018-10-28] MEDS ORDERED: XYLOCAINE-MPF 2% ONE (13:09)
--- NOTE | 2018-10-28 14:47 | ENDOSCOPY OPERATIVE NOTE ---
[facility] ENDOSCOPY OPERATIVE NOTE , PATIENT: Smith Bradley ADM DATE: 10/28/2018 MR #: [id number] : 1935 ACCT #: COLONOSCOPY PROCEDURE REPORT PROCEDURE DATE: 10/28/2018 SURGEON: Ash Reed MD STATUS: inpatient SCRAP PILER: Maribeth Biggs and Brigette Barros PREOPERATIVE DIAGNOSIS: The patient is a 83 yr old male here for a colonoscopy due to hematochezia a nd anemia, non-specific. PROCEDURE PERFORMED: Colonoscopy with control of bleeding Colonoscopy with snare polypectomy MEDICATIONS: Per Anesthesia PREP TYPE: GoLytely
[2018-10-28] MEDS: COREG PO SCH ×2 (14:52→21:59)
[2018-10-28] MEDS: LASIX PO SCH (14:53)
[2018-10-28] MEDS: TYLENOL ARTHRITIS PO SCH ×2 (14:54→21:59)
[2018-10-28] MEDS: LOPID PO SCH ×2 (14:54→21:59)
[2018-10-28] MEDS: KLOR-CON PO SCH (14:54)
[2018-10-28] MEDS: HUMULIN 70/30 SUBQ SCH ×2 (14:55→21:53)
--- NOTE | 2018-10-28 21:42 | PROGRESS NOTE ---
DATE: 10/28/2018 SUBJECTIVE: Patient has had EGD and colonoscopy done this morning, and the results showed 2 AVMs and some bleeding with that and those sites were cauterized per Dr. Reed. He also had a 9 mm sessile polyp in the hepatic flexure, which was removed via snare cautery. OBJECTIVE: Vital signs: Afebrile. Vital signs stable. Cardiovascular: RRR with murmur. Lungs: CTA. Extremities: No calf tenderness, cords or edema. Prominent arthritic changes diffusely. Neurological: Cranial nerves 2 to 12 intact. No focal deficits. LABORATORY DATA: White count 3.48, hemoglobin 8.4, platelets 137,000. Sodium 136, potassium 3.7, chloride 102, CO2 26, BUN 7, creatinine 0.6, blood sugar primarily in the 100s, calcium 8.0. ASSESSMENT: 1. Gastrointestinal bleed secondary to bleeding arteriovenous malformations in the colon now cauterized. 2. Sessile polyp left hepatic flexure 9 mm, status post snare cautery. 3. Gastrointestinal blood loss anemia, stable. 4. 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 5. Paroxysmal atrial fibrillation on chronic Coumadin therapy prior to this admission. 6. A 4.5 cm abdominal aortic aneurysm followed by [place] surgeon. 7. Peripheral arterial disease. 8. Osteoarthritis. 9. Hyperlipidemia. 10. History of pancreatic cystic lesion, thought to be fatty infiltration of the pancreas. 11. Coronary artery disease. 12. Morbid obesity. 13. Fatty liver. 14. Diverticulosis. 15. Asymptomatic cholelithiasis. 16. Cardiomyopathy. 17. History of prostate cancer. 18. Hypertension. 19. Permanent pacemaker. 20. Obstructive sleep apnea on CPAP at night. PLAN: He remains off his Coumadin. We will repeat CBC in the morning and we will continue his insulin and follow his blood sugars. He is on full liquids at this time. We will try to advance tomorrow and likely discharge late tomorrow if he continues to do well without signs of active bleeding. cc: Gurmeet Poe MD
[2018-10-28] MEDS: FLOMAX PO SCH (21:59)
[2018-10-28] MEDS: LIPITOR PO SCH (21:59)
[2018-10-28] MEDS: PROSCAR PO SCH (22:00)
[2018-10-29] MEDS ORDERED: INSULIN PEN NEEDLES ONE (06:05)
[2018-10-29] MEDS: PRILOSEC PO SCH (06:15)
[2018-10-29] MEDS: HUMALOG SUBQ SCH ×4 (06:52→20:29)
[2018-10-29 07:31] LABS: HEMATOCRIT 27.3 % (42.0-52.0); HEMOGLOBIN 8.3 g/dL (14.0-18.0); MCH 27.8 PG (27-31); MCHC 30.4 g/dL (33-37); MCV 91.3 FL (81-99); MPV 9.5 FL (7.4-10.4); RBC 2.99 XMIL (4.7-6.1); RDW 15.2 % (11.5-14.5); WBC 4.06 X1000 (4.8-10.8)
[2018-10-29] MEDS: LASIX PO SCH (08:31)
[2018-10-29] MEDS: LOPID PO SCH ×2 (08:31→20:44)
[2018-10-29] MEDS: COREG PO SCH ×2 (08:31→20:44)
[2018-10-29] MEDS: TYLENOL ARTHRITIS PO SCH ×2 (08:31→20:43)
[2018-10-29] MEDS: KLOR-CON PO SCH (08:31)
[2018-10-29] MEDS: HUMULIN 70/30 SUBQ SCH ×2 (08:32→20:44)
--- NOTE | 2018-10-29 10:52 | PROGRESS NOTE ---
DATE: 10/29/2018 SUBJECTIVE: The patient is stable, and tolerating full liquid diet. OBJECTIVE: Afebrile. Blood pressure marginally low, but stable.Cardiovascular: RRR. Lungs: Clear. Abdomen: Soft, nontender, and nondistended. Extremities: No calf tenderness, cords or edema. Pronounced arthritic changes diffusely. Neurologic: Cranial nerves are intact. Moves all extremities well. No focal deficits. LABORATORY: White count 4.06, hemoglobin stable at 8.3, and platelets 147,000. Blood sugars in the 90 to 189 range. ASSESSMENT: 1. GI bleed secondary to AVM's and 1 sessile polyp in the colon. 2. Acute GI blood loss anemia, stable status post 2 units PRBC's transfused. 3. 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 4. Paroxysmal atrial fibrillation, previously on chronic Coumadin therapy by Cardiology, [facility]. 5. 4.5 cm abdominal aortic aneurysm, followed by [place] surgeon 6. PAD. 7. OA 8. Hyperlipidemia. 9. Remote history of pancreatic cystic lesion, thought to be fatty infiltration of the pancreas. 10. CAD. 11. Morbid obesity. 12. Fatty liver. 13. Diverticulosis. 14. Asymptomatic cholelithiasis. 15. Cardiomyopathy. 16. History of prostate cancer. 17. Hypertension. 18. Permanent pacemaker. 19. CORY on CPAP. PLAN: We will continue to follow the patient on full liquids and understand Dr. Reed may advance his diet after 24 hours and may watch him another 24 after that on a regular diet, make sure he does not rebleed. If that's the case, we will check CBC in the morning and follow that. Continue to leave him off anticoagulation, and we will have plans to when we discharge patient to allow him to follow up with his wire weaver cloth, and decide on resumption of the Coumadin versus another agent in the long run. cc: MD WIL Zamora
[2018-10-29] MEDS: FLOMAX PO SCH (20:43)
[2018-10-29] MEDS: LIPITOR PO SCH (20:43)
[2018-10-29] MEDS: PROSCAR PO SCH (20:44)
--- NOTE | 2018-10-29 22:44 | GASTROENTEROLOGY PROGRESS NOTE ---
DATE: 10/29/2018 SUBJECTIVE: Patient denies complaints. He has not had any further rectal bleeding since his procedure. He has not had a bowel movement since his procedure. He had an EGD and colonoscopy on 10/28/2018. Indications for hematochezia and anemia. EGD findings showed gastritis. Colonoscopy findings showed 2 arterial venous malformations at the splenic flexure. AVMs were treated. Also noted a 9 mm sessile polyp at the hepatic flexure. No evidence of ulcers or tumors. Patient was recommended to follow a full liquid diet for 1 day and then advance to a diabetic diet. OBJECTIVE: Vital Signs: Temperature 98.3 degrees, pulse 70, respirations 20, blood pressure 132/67. General: Patient was awake and alert. No acute distress. LABORATORY/HEMATOLOGY: WBC 4.06 hemoglobin 8.3, hematocrit 27.3, MCV 91.3. ASSESSMENT AND PLAN: 1. Recent rectal bleeding. 2. Anemia. 3. EGD and colonoscopy showing gastritis and arteriovenous malformations in the colon that were treated along with a colon polyp. Pathology is pending. Today, the patient has had no further episodes of rectal bleeding. He has not had a bowel movement since the procedure. We will advance his diet and if tolerated, he can be discharged home. Recommend he follow up with us in the office after discharge. Further plans will be made as needed. We will follow up on the biopsy results. Patient was also seen by Dr. Reed. Dictated by CARIN Tapia for Ash Reed MD cc: CARIN Bowman MD Stephen W. Harbin, MD MTDD
[2018-10-30] MEDS: PRILOSEC PO SCH ×2 (06:12→06:18)
[2018-10-30] MEDS: HUMALOG SUBQ SCH ×3 (06:23→17:58)
[2018-10-30 08:55] LABS: BASO# 0.03 X1000 (0.0-0.2); BASO% 0.7 % (0.0-0.8); EOS# 0.16 X1000 (0.0-0.7); EOS% 3.7 % (0.0-10.0); HEMATOCRIT 27.5 % (42.0-52.0); HEMOGLOBIN 8.2 g/dL (14.0-18.0); LYMPH# 0.95 X1000 (1.2-3.4); LYMPH% 21.8 % (20.5-51.1); MCHC 29.8 g/dL (33-37); MCV 90.5 FL (81-99); MONO# 0.75 X1000 (0.11-0.59); MONO% 17.2 % (1.7-9.3); MPV 9.1 FL (7.4-10.4); NEUT# 2.46 X1000 (1.4-6.5); NEUT% 56.6 % (42.2-75.2); PLT 147 X1000 (130-400); RBC 3.04 XMIL (4.7-6.1); RDW 15.1 % (11.5-14.5); WBC 4.35 X1000 (4.8-10.8)
[2018-10-30 09:07] LABS: AGAP 10; BUN 9 mg/dL (8-22); CALCIUM 8.3 mg/dL (8.8-10.2); CHLORIDE 100 mmol/L (98-107); COSMO 274; CREATININE 0.7 mg/dL (0.7-1.2); ESTIMATED GFR > 60; GLUCOSE 158 mg/dL (70-104); POTASSIUM 3.8 mmol/L (3.5-5.1); SODIUM 136 mmol/L (136-145); TCO2 26 mmol/L (25-35)
--- NOTE | 2018-10-30 09:09 | Diag Imaging Result Doc PS360 ---
EXAM: CHEST-2 VIEWS - 10/30/2018 HISTORY: fever/mild cough TECHNIQUE: Chest two views COMPARISON: 12/05/2017 FINDINGS: There is stable cardiomegaly. There is transvenous cardiac pacemaker again seen. There is stable mild elevation of the left hemidiaphragm. Lungs appear clear. There is no pleural effusion or pneumothorax identified. IMPRESSION: Stable cardiomegaly. No acute changes. Electronically signed by Junito Melendez 10/30/2018 9:06 AM
[2018-10-30] MEDS: COREG PO SCH (09:12)
[2018-10-30] MEDS: TYLENOL ARTHRITIS PO SCH (09:12)
[2018-10-30] MEDS: KLOR-CON PO SCH (09:12)
[2018-10-30] MEDS: LASIX PO SCH (09:13)
[2018-10-30] MEDS: LOPID PO SCH (09:13)
[2018-10-30] MEDS: HUMULIN 70/30 SUBQ SCH (09:13)
--- NOTE | 2018-10-30 14:12 | PROGRESS NOTE ---
DATE: 10/30/2018 SUBJECTIVE: Patient has tolerated diabetic diet well. He on questioning has had a low-grade fever developed this morning up to 100.1 orally. Denies dysuria. Denies back pain. Has had minimal cough but nothing severe at all. Denies abdominal pain. He had refused a CBC this morning stating he was wanting to go home but I needed that CBC to look at his hemoglobin and also would help me to see if he has leukocytosis and I explained this to him in detail. OBJECTIVE: T-max 100.1 degrees, T current 100.1, pulse 70, respirations 16, blood pressure 119/58, O2 saturation on room air 98%.CV: RRR with murmur. Lungs: Clear. Abdomen: Soft, protuberant, nontender, nondistended. Back: No CVA tenderness. Extremities: No calf tenderness, cords or edema. Prominent arthritic changes diffusely at the joints noted. Neuro: Cranial nerves 2-12 are intact nonfocal. Blood sugars, this morning's blood sugar was 232, blood sugars ranging 90 to 232, primarily in the low 100s. ASSESSMENT: 1. Development of low-grade fever. 2. History of recent gastrointestinal bleed with arterial venous malformations and 1 sessile polyp in the colon and some gastritis. 3. Acute gastrointestinal blood loss anemia stable status post 2 units packed red blood cells. 4. History of gastrointestinal stromal tumor removed per Dr. Whitaker many years ago. 5. Paroxysmal atrial fibrillation off of his Coumadin due to recent gastrointestinal bleed. 6. 4.5 cm abdominal aortic aneurysm followed by [place] vascular surgeon. 7. Peripheral artery disease . 8. OA. 9. Hyperlipidemia. 10. Remote history of pancreatic cystic lesion thought to be fatty infiltration of the pancreas. 11. Coronary artery disease. 12. Morbid obesity. 13. Fatty liver. 14. Diverticulosis. 15. Asymptomatic cholelithiasis. 16. Cardiomyopathy. 17. History pancreatic cancer. 18. Hypertension. 19. Permanent pacemaker. 20. Obstructive sleep apnea on CPAP. PLAN: Fortunately he is tolerating his food well but he has developed this low-grade fever. Will work that up and I discuss the need the CBC and will check BMP while we are at it . Will check chest x-ray, will check UA with C and S. He has had some pyuria earlier in the hospital course but has been asymptomatic. Will make sure this not indeed a UTI. He also has the asymptomatic cholelithiasis and would make sure that is not becoming symptomatic. Will await those results and ambulate patient with physical therapy and will possibly discharge later today if he continues to do well and look clinically well, we are going to continue his PPI as well. cc: Gurmeet Poe MD
[2018-10-30 15:53] LABS: URINE SOURCE CLEAN CATCH
[2018-10-30 15:57] LABS: BILIRUBIN URINE NEGATIVE (NEGATIVE); BLOOD URINE TRACE (NEGATIVE); COLOR YELLOW; GLUCOSE URINE NEGATIVE (NEGATIVE); KETONE URINE NEGATIVE (NEGATIVE); LEUKOCYTES URINE LARGE (NEGATIVE); NITRITE URINE NEGATIVE (NEGATIVE); PROTEIN URINE NEGATIVE (NEGATIVE); SP GRAVITY URINE 1.006; TURBIDITY URINE HAZY (CLEAR); UROBILINOGEN URINE NORMAL (NORMAL)
[2018-10-30 15:59] LABS: UR EPITHELIAL CELLS <10 /HPF (<10); URINE BACTERIA 4+ /HPF; URINE RBC <10 /HPF (<10); URINE WBC TNTC /HPF (<10)
[2018-10-30 18:02] VITALS: BP 137/66
--- NOTE | 2018-10-30 20:39 | GASTROENTEROLOGY PROGRESS NOTE ---
DATE: 10/30/2018 SUBJECTIVE: Patient denies rectal bleeding. He has not had a bowel movement so far today. He had an EGD and colonoscopy on 10/28/2018. Indications for hematochezia and anemia. EGD findings showed gastritis, colonoscopy findings showed 2 arterial venous malformations at the splenic flexure that were treated and a sessile polyp at the hepatic flexure. The pathology is pending. Patient's hemoglobin and hematocrit are stable today. He did have a low-grade fever this morning of 100.1. Patient denies complaints. OBJECTIVE: Vital signs: Temperature 100.1 degrees, pulse 70, respirations 16, blood pressure 119/58. General: The patient is awake and alert in no acute distress. LABORATORY: Hematology: WBC 4.35, hemoglobin 8.2, hematocrit 27.5, MCV 90.5, platelets 147,000. Chemistry: Sodium 136, potassium 3.8, chloride 100, CO2 26, BUN 9, creatinine 0.7, glucose 158, calcium 8.3. IMAGING: Chest x-ray today showed stable cardiomegaly with no acute changes. Lung sounds appeared clear with no evidence of pleural effusion or pneumothorax. ASSESSMENT AND PLAN: 1. Recent rectal bleeding has resolved. 2. Anemia stable. 3. Esophagogastroduodenoscopy and colonoscopy that showed gastritis and arteriovenous malformations in the colon that were treated along with a colon polyp that was removed. Pathology is pending. As far as gastroenterology is concerned, the patient can be discharged by primary when an appropriate. Recommend the patient follow up with us in the office after discharge. The patient tolerated a diabetic diet this morning for breakfast. Gastroenterology will sign off for now and follow up with the patient as an outpatient. I have discussed this case with Dr. Reed. Dictated by CARIN Tapia for Ash Reed MD cc: CARIN Bowman MD Stephen W. Harbin, MD
--- NOTE | 2018-10-31 04:14 | PROGRESS NOTE ---
DATE: 10/30/2018 Fever was noted earlier this morning. He has not had any fever or symptoms since that time at 7:25 this morning. I checked with his nurse and although this is not documented on the chart at this time, nurses gave me the vital signs throughout the day and have been negative for fever. Chest x-ray was negative. Hemoglobin is holding steady at about 8.2. White count was a little low at 4.35, which is increasing from yesterday. Platelets are normal at 147. Difficult time getting the urinalysis during the day today, but finally that was obtained. It is clean catch and is abnormal showing possible UTI, so urine culture was obtained and we will treat him outpatient with Cipro 500 mg p.o. b.i.d. #20. No refills. Also, place him on Protonix 40 mg daily 30 with 2 refills. Those were supplied through his pharmacy at [facility]. Also, the patient was instructed not to take Coumadin at home. He is to follow up with his refrigeration service inspector this next week for consideration regarding restarting anticoagulation for his atrial fibrillation later on. For now due to the recent GI bleed, that will be held. Otherwise, he will resume his home medications. cc: Gurmeet Poe MD
--- NOTE | 2018-11-02 12:09 | ENDOSCOPY OPERATIVE NOTE ---
[facility] ENDOSCOPY OPERATIVE NOTE , PATIENT: Smith Bradley ADMISSION DATE: 10/28/2018 MR#: [id number] : 1935 ACCT #: EGD PROCEDURE REPORT PROCEDURE DATE: 10/28/2018 SURGEON: Ash Reed MD STATUS: inpatient ANTIQUE FINISHER: Percy Ritter and Maribeth Biggs PREOPERATIVE DIAGNOSIS: The patient is a 83 yr old male here for an EGD due to hematochezia. PROCEDURE PERFORMED: EGD, diagnostic MEDICATIONS: Per Anesthesia TOPICAL ANESTHETIC: none CONSENT: The patient understands the risks and benefits of the procedure and understands that these r isks include, but are not limited to: sedation, allergic reaction, infection, perforation and/or bleeding. Alternative means of evaluation and treatment include, among others: physical exam, x-rays, and/or surgical intervention. The patient elects to proceed with this endoscopic procedure. HISORY AND PHYSICAL: 10/28/2018 function. Hand hygiene and appropriate measures for infection prevention was taken. After the risks, benefits and alternatives of the procedure were thoroughly explained, Informed consent was verified, confirmed and timeout was successfully executed by the treatment team. The patient was anesthetized with topical anesthesia and the Pentax [id number] endoscope was introduced through the mouth and advanced to the second portion of the duodenu m. Retroflexion was performed in the stomach and revealed no abnormalities. The gastroscope was then slowly withdraw n and removed. ESOPHAGUS: The mucosa of the esophagus appeared normal. STOMACH: Mild gastritis (inflammation) was found in the gastric antrum. There was no evidence of AV M, Ulcer, tumor or masses. The stomach otherwise appeared normal. DUODENUM: The duodenal mucosa showed no abnormalities. SPECIMENS REMOVED: No ADVERSE EVENTS: There were no complications. POSTOPERATIVE DIAGNOSIS: 1. The mucosa of the esophagus appeared normal 2. Gastritis (inflammation) was found in the gastric antrum 3. The stomach otherwise appeared normal 4. The duodenal mucosa showed no abnormalities RECOMMENDATIONS: Continue to colonoscopy procedure REPEAT EXAM: Ash Reed MD eSigned: Ash Reed MD 10/28/2018 3:40 PM cc:
--- NOTE | 2018-12-06 20:26 | DISCHARGE SUMMARY ---
ADMISSION DATE: 10/23/2018 DISCHARGE DATE: 10/30/2018 DIAGNOSES: 1. Gastrointestinal bleed due to arterial venous malformations and 1 sessile polyp in the colon accompanied by some gastritis. 2. Acute gastrointestinal blood loss anemia requiring 2 units packed red blood cells transfused during the hospitalization. 3. Urinary tract infection developing at discharge eventually growing out Serratia marcescens sensitive to Cipro he was discharged on. 4. History of gastrointestinal stromal tumor removed per Dr. Whitaker many years ago. 5. Paroxysmal atrial fibrillation previously on Coumadin per his cytogenetic technician is now off that due to recent gastrointestinal bleed. 6. 4.5 cm abdominal aortic aneurysm followed by [place] vascular surgeon. 7. Peripheral arterial disease. 8. Osteoarthritis. 9. Hyperlipidemia. 10. Remote history of pancreatic cystic lesion thought to be fatty infiltration of the pancreas. 11. Coronary artery disease. 12. Morbid obesity. 13. Fatty liver. 14. Diverticulosis. 15. Asymptomatic cholelithiasis. 16. Cardiomyopathy. 17. History of prostate cancer. 18. Hypertension. 19. Permanent pacemaker. 20. Obstructive sleep apnea on CPAP. CONSULTANTS: Dr. Reed, Gastroenterology. PROCEDURES: 1. Colonoscopy with snare polypectomy per Dr. Reed revealing 2 AV malformations found at the splenic flexure with heater probe. Hemostasis performed with stoppage of bleeding noted, 9 mm sessile polyp found at the hepatic flexure with polypectomy performed with snare cautery. 2. EGD revealing normal esophagus, gastritis found in the gastric antrum otherwise duodenum normal. Pathology from the hepatic flexure polyp biopsy site revealed submucosal lipoma. REASON FOR ADMISSION AND HOSPITAL COURSE: The patient is an 83-year-old white male followed in my medical practice, has a history of PAF followed by Cardiology and is on chronic Coumadin therapy followed by them. Came in with GI bleeding. Dr. Reed was consulted and performed EGD and colonoscopy as above. Anticoagulation was held during the hospitalization and at discharge. He will follow up with his cytogenetic technician after discharge to find out when he needs to start back on his Coumadin treatment. Chest x-ray was done during the hospitalization and showed stable cardiomegaly, otherwise negative. Patient did require 2 units PRBCs transfused. DISCHARGE MEDICATIONS: Protonix 40 mg p.o. daily, Cipro 500 mg p.o. b.i.d. for UTI, Proscar 5 mg p.o. at bedtime, Lipitor 80 mg p.o. at bedtime, Lopid 600 mg p.o. b.i.d., Flomax 0.4 mg p.o. at bedtime, potassium chloride 10 mEq p.o. daily, Lasix 20 mg p.o. daily, Novolin 70/30 insulin 42 units subcu q.a.m., 22 units subcu nightly, Coreg 3.125 mg p.o. b.i.d., Tylenol Arthritis 2 p.o. b.i.d., again he was left off his Coumadin during the hospitalization and at discharge. He will follow up in my office in 1 to 2 weeks. cc: Gurmeet Poe MD
== END 2018-10-30 18:45 | disposition home or self-care (01) | DRG 378 ==
LOC: ED 14:08 → 3N 17:51
PROVIDERS: ADMIT Family Medicine; ATTEND Family Medicine
PROC: EN.HEAT (2018-10-28 13:15)